=== PATIENT | male | born 1955 | race Caucasian/White ===

== ENCOUNTER 2019-02-05 19:45 | Emergency (ER) | payer OTHER ==
[~2019-02-05] VITALS: Ht 172.7 cm; Wt 78.7 kg
[2019-02-05 19:49] VITALS: Ht 172.7 cm; Wt 78.7 kg
--- NOTE | 2019-02-05 21:10 | ERD ---
ER Documentation Chief Complaint Chief Complaint DYSURIA X2DAYS HPI The patient is a 63-year-old male, presenting to the ER because of diffuse abdominal discomfort after eating at a restaurant for the last 3-day, nausea, vomiting, painful urination. He was seen at urgent care who treated him for UTI with Bactrim DS with minimal response. He denies fever, chills, neck pain, chest pain, abdominal pain. He does not smoke, drinks socially. Past medical history/surgical history: None ROS All systems reviewed and are negative except as per history of present illness. Medications Home Meds Active Scripts Phenazopyridine Hcl* (Pyridium*) 200 Mg Tab, 200 MG PO TID PRN for URINARY PAIN, #6 TAB Prov:CHEN ENGLAND MD 02/05/19 Ciprofloxacin Hcl* (Ciprofloxacin Hcl*) 500 Mg Tablet, 500 MG PO BID for 7 Days, TAB Prov:CHEN ENGLAND MD 02/05/19 Reported Medications Ibuprofen* (Ibuprofen*) 600 Mg Tablet, 600 MG PO Q8, TAB 02/05/19 Sulfamethoxazole/Trimethoprim* (Bactrim Ds* Tablet) 1 Each Tablet, 1 TAB PO Q8 for 800/160mg tab, TAB 02/05/19 Allergies Allergies: Coded Allergies: No Known Allergy (Unverified , 02/05/19) PMhx/Soc Medical and Surgical Hx: pt denies Surgical Hx Hx Alcohol Use: No Hx Substance Use: No Hx Tobacco Use: No Smoking Status: Never smoker Physical Exam Vitals Vital Signs Date Temp Pulse Resp B/P (MAP) Pulse Ox O2 O2 Flow FiO2 Time Delivery Rate 02/05/19 98.0 85 14 146/88 97 Room Air 23:41 (107) 02/05/19 82 14 149/92 98 Room Air 23:00 (111) 02/05/19 98.0 84 18 153/77 98 Room Air 21:00 (102) 02/05/19 98.0 95 19 155/86 96 19:49 (109) Physical Exam Const: No acute distress Head: Atraumatic Eyes: Normal Conjunctiva ENT: Normal External Ears, Nose and Mouth. Neck: Full range of motion. No meningismus. Resp: Clear to auscultation bilaterally Cardio: Regular rate and rhythm, no murmurs Abd: Soft, non tender, non distended. Normal bowel sounds Skin: No petechiae or rashes Back: No midline or flank tenderness Ext: No cyanosis, or edema Neur: Awake and alert Psych: Normal Mood and Affect Result Diagram: 02/05/19210202/05/192102 Results 24 hrs Laboratory Tests Test 02/05/19 21:03 02/05/19 21:16 White Blood Count 11.2 10^3/ul Red Blood Count 4.54 10^6/ul Hemoglobin 13.6 g/dl Hematocrit 41.3 % Mean Corpuscular Volume 91.0 fl Mean Corpuscular Hemoglobin 30.0 pg Mean Corpuscular Hemoglobin Concent 32.9 g/dl Red Cell Distribution Width 13.6 % Platelet Count 127 10^3/UL Mean Platelet Volume 10.3 fl Immature Granulocytes % 0.400 % Neutrophils % 87.5 % Lymphocytes % 5.2 % Monocytes % 5.6 % Eosinophils % 0.9 % Basophils % 0.4 % Nucleated Red Blood Cells % 0.0 /100WBC Immature Granulocytes # 0.050 10^3/ul Neutrophils # 9.8 10^3/ul Lymphocytes # 0.6 10^3/ul Monocytes # 0.6 10^3/ul Eosinophils # 0.1 10^3/ul Basophils # 0.1 10^3/ul Nucleated Red Blood Cells # 0.0 10^3/ul Sodium Level 141 mmol/L Potassium Level 4.1 mmol/L Chloride Level 103 mmol/L Carbon Dioxide Level 28 mmol/L Anion Gap 10 Blood Urea Nitrogen 14 mg/dl Creatinine 0.85 mg/dl Est Glomerular Filtrat Rate mL/min > 60 mL/min Glucose Level 117 mg/dl Calcium Level 9.5 mg/dl Total Bilirubin 0.7 mg/dl Direct Bilirubin 0.00 mg/dl Indirect Bilirubin 0.7 mg/dl Aspartate Amino Transf (AST/SGOT) 40 IU/L Alanine Aminotransferase (ALT/SGPT) 28 IU/L Alkaline Phosphatase 86 IU/L Total Protein 7.5 g/dl Albumin 3.9 g/dl Globulin 3.60 g/dl Albumin/Globulin Ratio 1.08 Lipase 12 U/L Bedside Urine pH (LAB) 6.0 Bedside Urine Protein (LAB) 2+ Bedside Urine Glucose (UA) Negative Bedside Urine Ketones (LAB) 3+ Bedside Urine Blood 2+ Bedside Urine Nitrite (LAB) Negative Bedside Urine Leukocyte Esterase (L 1+ Current Medications Medications Dose Sig/Hector Start Time Status Last (Trade) Ordered Route PRN Stop Time Admin Dose Reason Admin Ketorolac 30 mg ONCE STAT 02/05/19 DC 02/05/19 Tromethamine IV 21:16 21:25 (Toradol) 02/05/19 21:18 Ondansetron 4 mg ONCE STAT 02/05/19 DC 02/05/19 HCl (Zofran IV 21:16 21:24 Inj) 02/05/19 21:18 Ceftriaxone 50 ml @ ONCE ONCE 02/05/19 DC 02/05/19 Sodium 100 mls/hr IVPB 23:00 23:10 02/05/19 23:29 Procedures/MDM MEDICAL MAKING DECISION: The patient is a 62-year-old male, presenting with acute cystitis, resistant to Bactrim DS. He was treated with 1 L normal saline for clinical dehydration, Rocephin 1 g IV for acute cystitis with good response, is stable for outpatient follow-up The differential diagnoses considered include but are not limited to cholelithiasis, cholecystitis, choledocholithiasis, cholangitis, pancreatitis, hepatitis, gastritis, peptic ulcer disease, gastric ulcer, appendicitis, cystitis, diverticulitis, partial small bowel obstruction. Departure Diagnosis: Primary Impression: UTI (urinary tract infection) Additional Impressions: Anemia Thrombocytopenia Condition: Good Comments The patient's blood pressure was elevated (>120/80) but appears stable without evidence of hypertension emergency or urgency. The patient was counseled about the risks of hypertension and urged to pursue outpatient monitoring and therapy within a week with their primary care physician. He was discharged with Cipro and Pyridium I discussed the findings with the patient. I advised the patient to follow-up with the primary physician in about 1-2 days, sooner if needed and return if any concern. Disclaimer: Inadvertent spelling and grammatical errors are likely due to EHR/dictation software use and do not reflect on the overall quality of patient care. Also, please note that the electronic time recorded on this note does not necessarily reflect the actual time of the patient encounter. CHEN ENGLAND MD Feb 05, 2019 21:10
[2019-02-05] MEDS ORDERED: ONDANSETRON 4 MG INJ IV STA (21:16)
[2019-02-05] MEDS ORDERED: KETOROLAC 30 MG INJ IV STA (21:16)
[2019-02-05] MEDS ORDERED: PHEN-538 PO (22:55)
[2019-02-05] MEDS ORDERED: CIPR500T4 PO (22:55)
[2019-02-05] MEDS ORDERED: CEFTRIAXONE 1 GM/50 ML (PMX) 50 ML IVPB ONE (23:00)
[2019-02-05] MEDS ORDERED: SULF1TAB31 PO (23:05)
[2019-02-05] MEDS ORDERED: IBUP-1542 PO (23:06)
[2019-02-05 23:41] VITALS: BP 146/88; PULSE 85; RESP 14
== END 2019-02-05 23:41 | disposition home or self-care (01) ==
LOC: E/R 19:45
DX: N39.0 Urinary tract infection, site not specified (principal); D64.9 Anemia, unspecified; D69.6 Thrombocytopenia, unspecified
CPT/HCPCS: 36415; 80053; 81003; 83690; 85025; 87086; 96374; 96375; 99284; J0696; J1885; J2405